=== PATIENT | female | born 2000 | race Caucasian/White ===

== ENCOUNTER 2018-12-05 06:28 | Inpatient (IN) | payer OTHER ==
[2018-12-05] MEDS ORDERED: ONDANSETRON 4 MG/2 ML VIAL IVP ONE (06:32)
[2018-12-05] MEDS ORDERED: NS 1,000 ML IV ONE (06:32)
[2018-12-05] MEDS ORDERED: IPRATROPIUM/ALBUTEROL 3 ML DEYVIAL IH ONE (06:32)
[2018-12-05] MEDS ORDERED: ONDANSETRON 4 MG/2 ML VIAL ONE (06:33)
[2018-12-05] MEDS ORDERED: IPRATROPIUM/ALBUTEROL 3 ML DEYVIAL ONE (06:33)
--- NOTE | 2018-12-05 06:36 | EDPHY ---
H & P Stated Complaint: SOB Time Seen by Provider: 12/05/18 06:32 HPI/ROS: HPI The patient presents with shortness of breath, wheezing, cough which she 1st noticed last night. She used her inhaler several times and eventually fell asleep. She awoke early this morning and had ongoing wheezing, cough, shortness of breath. She again used her inhaler though did not have any relief and 911 was called. Paramedics report initial sat was 80% on room air. She received a DuoNeb with improvement in her sats to the high 90s. The patient does have a history of asthma. She has been feeling sick with a cough and subjective fever for the last 2 days. She is not sure what triggered her asthma. She does not have any hospital admissions for asthma. REVIEW OF SYSTEMS 10 systems were reviewed and negative with the exception of the elements mentioned in the history of present illness. PMHx: Asthma as above Soc Hx: College student PHYSICAL General Appearance: Alert, no distress Eyes: Pupils equal and round no pallor or injection ENT, Mouth: Mucous membranes moist Respiratory: She is able to speak full sentences, there are expiratory wheezes throughout all lung [place] Cardiovascular: Tachycardic rate and regular rhythm Gastrointestinal: Abdomen is soft and non-tender, no masses, bowel sounds normal Neurological: A&O, moves all extremities Skin: Warm and dry, no rashes Musculoskeletal: Neck is supple non tender Extremities: symmetrical, full range of motion Psychiatric: Patient is oriented X 3, there is no agitation Source: Patient, EMS Exam Limitations: No limitations Constitutional: Initial Vital Signs Temperature (C) 36.8 C 12/05/18 06:31 Heart Rate 124 H 12/05/18 06:31 Respiratory Rate 24 H 12/05/18 06:31 Blood Pressure 129/88 H 12/05/18 06:31 O2 Sat (%) 91 L 12/05/18 06:31 O2 Delivery Mode Nasal Cannula O2 (L/minute) 2 Allergies/Adverse Reactions: No Known Allergies Allergy (Unverified 12/05/18 06:39) Home Medications: Medication Instructions Recorded Albuterol [Ventolin Hfa Inhaler] 1 - 2 puffs IH Q4H PRN 12/05/18 Herbals/Supplements -Info Only 1 ea PO DAILY 12/05/18 Medical Decision Making Differential Diagnosis: 18-year-old female with history of asthma presents with cough, wheeze, shortness of breath, not improved with her albuterol inhaler. Here, she is slightly tachypneic though in no respiratory distress, pulse ox is 90% on room air after receiving a DuoNeb in the ambulance. I suspect asthma exacerbation I would also consider URI or influenza. Plan for treatment with DuoNeb. Patient has already received Solu-Medrol. I will check chest x-ray, basic laboratory testing. Patient had normal chest x-ray and laboratory testing. Case is signed out to Dr. Carey. After initial DuoNeb she still has some wheezing present. Critical Care Time: CRITICAL CARE Critical care time spent by me, Dr. Ann, exclusively with this patient was 30 minutes, exclusive of PA time and exclusive of procedures. The organ system at risk was respiratory and I gave continuous nebulizer treatments to prevent worsening of the patients condition. - Data Points Laboratory Results: Laboratory Results 12/05/18 06:50 12/05/18 06:50 Medications Given: Acetaminophen (Tylenol) 650 mg PO Q4HRS PRN PRN Reason: Pain, Mild/Fever, Can Take PO Stop: 06/03/19 08:57 Last Admin: 12/06/18 10:07 Dose: 650 mg Benzonatate (Tessalon Pearles) 100 mg PO TID PRN PRN Reason: Cough, Mild Stop: 06/04/19 01:17 Last Admin: 12/06/18 02:37 Dose: 100 mg Guaifenesin (Mucinex) 600 mg PO BID [facility] Stop: 06/04/19 09:59 Last Admin: 12/06/18 21:22 Dose: 600 mg Guaifenesin/Dextromethorphan (Robitussin Dm Oral Liquid) 10 ml PO Q4HRS PRN PRN Reason: Cough, Moderate Stop: 06/04/19 01:17 Last Admin: 12/06/18 06:01 Dose: 10 ml Ipratropium [place] (Atrovent Neb) 0.5 mg IH QID BARBARA Stop: 06/03/19 15:59 Last Admin: 12/06/18 20:49 Dose: 0.5 mg Levalbuterol (Xopenex 1.25mg Neb) 1.25 mg IH QID BARBARA Stop: 06/03/19 15:59 Last Admin: 12/06/18 20:48 Dose: 1.25 mg Levalbuterol (Xopenex 1.25mg Neb) 1.25 mg IH Q2H PRN PRN Reason: Short of Breath/Dyspnea Stop: 06/03/19 13:28 Last Admin: 12/06/18 01:23 Dose: 1.25 mg Melatonin (Melatonin) 3 mg PO HS BARBARA Stop: 06/03/19 20:59 Last Admin: 12/06/18 21:22 Dose: 3 mg Methylprednisolone Sodium Succinate (Solu-Medrol) 125 mg IVP Q6H BARBARA Stop: 06/03/19 18:59 Last Admin: 12/06/18 18:03 Dose: 125 mg Phenol (Chloraseptic [place]) 1 spray PO Q2 PRN PRN Reason: Sore Throat Stop: 06/04/19 11:10 Last Admin: 12/06/18 11:37 Dose: 1 spray Fluticasone/Salmeterol (Advair) 1 puffs IH BID [facility] Stop: 06/03/19 11:14 Last Admin: 12/06/18 20:49 Dose: 1 puffs Discontinued Medications Albuterol (Proventil Neb) 10 ml IH CONT ONE Stop: 12/05/18 07:24 Last Admin: 12/05/18 07:31 Dose: 3 ml Albuterol (Proventil Neb) 3 ml IH QID BARBARA Stop: 06/03/19 11:59 Last Admin: 12/05/18 13:08 Dose: 3 ml Albuterol (Proventil Neb) 3 ml IH EDNOW ONE Stop: 12/05/18 10:12 Last Admin: 12/05/18 10:12 Dose: 3 ml Albuterol/Ipratropium (Duoneb) 3 ml IH EDNOW ONE Stop: 12/05/18 06:33 Last Admin: 12/05/18 06:39 Dose: 3 ml Sodium Chloride (Ns) 1,000 mls @ 0 mls/hr IV EDNOW ONE; Wide Open PRN Reason: Protocol Stop: 12/05/18 06:33 Last Admin: 12/05/18 06:39 Dose: 1,000 mls Magnesium Sulfate (Magnesium Sulf 2 Gm (Premix)) 50 mls @ 50 mls/hr IV EDNOW ONE Stop: 12/05/18 09:43 Last Admin: 12/05/18 08:59 Dose: 50 mls Azithromycin 500 mg/ Sodium (Chloride) 255 mls @ 255 mls/hr IV DAILY BARBARA PRN Reason: Protocol Stop: 01/04/19 13:59 Last Admin: 12/06/18 08:42 Dose: 255 mls Magnesium Sulfate (Magnesium Sulf 2 Gm (Premix)) 50 mls @ 50 mls/hr IV ONCE ONE Stop: 12/05/18 14:36 Last Admin: 12/05/18 23:34 Dose: Not Given Magnesium Sulfate (Magnesium Sulf 2 Gm (Premix)) 50 mls @ 50 mls/hr IV ONCE ONE Stop: 12/05/18 20:44 Last Admin: 12/05/18 20:08 Dose: 50 mls Lorazepam (Ativan) 1 mg PO Q4 PRN PRN Reason: Anxiety, Able to Take PO Stop: 06/03/19 19:05 Last Admin: 12/05/18 20:07 Dose: 1 mg Methylprednisolone Sodium Succinate (Solu-Medrol) 60 mg IVP Q6H [facility] Stop: 06/03/19 11:59 Last Admin: 12/05/18 13:09 Dose: 60 mg Methylprednisolone Sodium Succinate (Solu-Medrol) 60 mg IVP ONCE ONE Stop: 12/05/18 13:38 Last Admin: 12/05/18 13:53 Dose: 60 mg Ondansetron HCl (Zofran) 4 mg IVP EDNOW ONE Stop: 12/05/18 06:33 Last Admin: 12/05/18 06:39 Dose: 4 mg Departure - Departure Disposition: [facility] In[facility] Acute Clinical Impression: Exacerbation of asthma Qualifiers: Asthma severity: moderate Asthma persistence: unspecified Qualified Code(s): J45.901 - Unspecified asthma with (acute) exacerbation Condition: Fair
[2018-12-05 06:58] LABS: PLATELET COUNT 253 10^3/uL (150-400)
[2018-12-05] MEDS ORDERED: ALBUTEROL 3 ML DEYVIAL IH ONE ×2 (07:23→10:11)
[2018-12-05] MEDS ORDERED: MAGNESIUM SULF 2 GM/WATER 50 ML IV ONE ×3 (08:44→19:45)
--- NOTE | 2018-12-05 08:47 | EDPHY ---
ED Progress Note Narrative: 8:45 a.m. the patient has finished her hour long neb. She remains tight and wheezy to auscultation. She is desaturating without oxygen supplementation. She is otherwise pleasant and in no distress. Will admit for further treatment. Will add magnesium. Have paged hospital service.
[2018-12-05] MEDS ORDERED: ONDANSETRON 4 MG/2 ML VIAL IVP PRN (08:58)
[2018-12-05] MEDS ORDERED: ONDANSETRON DISINTEGRATING 4 MG TAB PO PRN (08:58)
[2018-12-05] MEDS ORDERED: ALBUTEROL 3 ML DEYVIAL IH PRN (08:58)
[2018-12-05] MEDS ORDERED: BECLOMETHASONE QVAR 40 REDIHALER 120 INH/10.6 GM MDI IH SCH (09:15)
--- NOTE | 2018-12-05 09:44 | PDGENHP ---
History and Physical - Chief Complaint SOB, wheezing - History of Present Illness 18 yo female with h/o asthma vs RAD presents to ED with wheezing and SOB. She notes a sore throat started 2 d prior to arrival. She then developed a wet cough and wheezing. Her SOB was worse last night and she used her Albuterol inhaler "an astronomical number of times". She normally uses Albuterol twice daily and reports several nights per week she wakes up with wheezing. She is not currently on an inhaled steroid. She denies fevers/chills. She feels burning and tightness in her chest, worse with breathing. She has no other medical problems. She received 125 mg IV solumedrol by EMS and in the ED received continuous albuterol and magnesium. She continues to wheeze, requiring 2.5 LPM O2 with sats in the low 90's. She is admitted for further management. History Information - Allergies/Home Medication List Allergies/Adverse Reactions: No Known Allergies Allergy (Unverified 12/05/18 06:39) Home Medications: Albuterol [Ventolin Hfa Inhaler] 1 - 2 puffs IH Q4H PRN 12/05/18 [Last Taken ] Herbals/Supplements -Info Only 1 ea PO DAILY 12/05/18 [Last Taken Unknown] I have personally reviewed and updated: family history, medical history, social history, surgical history - Past Medical History asthma - Surgical History Reports: no pertinent surgical hx - Family History Positive for: non-pertinent - Social History Smoking Status: Never smoked Alcohol Use: None Drug Use: Marijuana Additional social history: She lives in a college house with roommates. Does online school through [employer] and works at [employer]. Smokes MJ occasionally, tries to use edibles as she notes smoking increases her asthma symptoms. Review of Systems Review of Systems: ROS: 10pt was reviewed & negative except for what was stated in HPI & below Physical Exam Physical Exam: Temp Pulse Resp BP Pulse Ox 36.8 C 120 H 22 H 105/70 88 L 12/05/18 06:31 12/05/18 08:41 12/05/18 08:41 12/05/18 08:41 12/05/18 08:41 Constitutional: no apparent distress Eyes: PERRL Ears, Nose, Mouth, Throat: moist mucous membranes Cardiovascular: regular rate and rhythym, no murmur, rub, or gallop Respiratory: no respiratory distress, reduced air movement, expiratory wheeze Gastrointestinal: normoactive bowel sounds, soft, non-tender abdomen Skin: warm Musculoskeletal: full muscle strength Neurologic: AAOx3 Psychiatric: interacting appropriately Lab Data & Imaging Review 12/05/18 06:50 12/05/18 06:50 WBC 11.50 10^3/uL (3.80-9.50) H 12/05/18 06:50 RBC 4.50 10^6/uL (4.18-5.33) 12/05/18 06:50 Hgb 13.1 g/dL (12.6-16.3) 12/05/18 06:50 Hct 40.8 % (38.0-47.0) 12/05/18 06:50 MCV 90.7 fL (81.5-99.8) 12/05/18 06:50 MCH 29.1 pg (27.9-34.1) 12/05/18 06:50 MCHC 32.1 g/dL (32.4-36.7) L 12/05/18 06:50 RDW 14.3 % (11.5-15.2) 12/05/18 06:50 Plt Count 253 10^3/uL (150-400) 12/05/18 06:50 MPV 10.4 fL (8.7-11.7) 12/05/18 06:50 Neut % (Auto) 75.2 % (39.3-74.2) H 12/05/18 06:50 Lymph % (Auto) 12.9 % (15.0-45.0) L 12/05/18 06:50 [place] % (Auto) 7.0 % (4.5-13.0) 12/05/18 06:50 Eos % (Auto) 4.1 % (0.6-7.6) 12/05/18 06:50 Baso % (Auto) 0.5 % (0.3-1.7) 12/05/18 06:50 Nucleat RBC Rel Count 0.0 % (0.0-0.2) 12/05/18 06:50 Absolute Neuts (auto) 8.66 10^3/uL (1.70-6.50) H 12/05/18 06:50 Absolute Lymphs (auto) 1.48 10^3/uL (1.00-3.00) 12/05/18 06:50 Absolute Monos (auto) 0.80 10^3/uL (0.30-0.80) 12/05/18 06:50 Absolute Eos (auto) 0.47 10^3/uL (0.03-0.40) H 12/05/18 06:50 Absolute Basos (auto) 0.06 10^3/uL (0.02-0.10) 12/05/18 06:50 Absolute Nucleated RBC 0.00 10^3/uL (0-0.01) 12/05/18 06:50 Immature Gran % 0.3 % (0.0-1.1) 12/05/18 06:50 Immature Gran # 0.03 10^3/uL (0.00-0.10) 12/05/18 06:50 Sodium 140 mEq/L (135-145) 12/05/18 06:50 Potassium 3.8 mEq/L (3.5-5.2) 12/05/18 06:50 Chloride 111 mEq/L (97-110) H 12/05/18 06:50 Carbon Dioxide 20 mEq/l (22-31) L 12/05/18 06:50 Anion Gap 9 mEq/L (6-14) 12/05/18 06:50 BUN 6 mg/dL (7-23) L 12/05/18 06:50 Creatinine 0.6 mg/dL (0.6-1.0) 12/05/18 06:50 Estimated GFR > 60 12/05/18 06:50 Glucose 112 mg/dL (70-100) H 12/05/18 06:50 Calcium 8.4 mg/dL (8.5-10.4) L 12/05/18 06:50 Nasal Influenza A PCR NEGATIVE FOR FLU A (NEGATIVE) 12/05/18 06:40 Nasal Influenza B PCR NEGATIVE FOR FLU B (NEGATIVE) 12/05/18 06:40 RSV (PCR) NEGATIVE FOR RSV (NEGATIVE) 12/05/18 06:40 Visualized and Interpreted Chest x-ray results: Yes Chest X-Ray results: no infiltrate Assessment & Plan Assessment: AHRF 2/2 acute exacerbation of asthma - suspect viral URI was trigger. Flu and RSV neg. She has moderate persistent asthma by history, but uses only prn albuterol at home. Presented with SOB and wheezing. S/P IV solumedrol by EMS, continuous neb and Mag in ED, currently on 2.5 LPM O2. -admit to med/surg -solumedrol 60 mg IV q6h, start QVAR, will need this at dc -alb nebs QID plus q2h prn -wean O2 as able -supportive care, send RVP, ?viral URI Full code Dispo - inpt, anticipate >48 hrs hospitalization given hypoxemia and asthma exacerbation.
[2018-12-05] MEDS ORDERED: ALBUTEROL 3 ML DEYVIAL ONE (10:11)
[2018-12-05] MEDS: ALBUTEROL 3 ML DEYVIAL IH SCH ×2 (11:06→13:08)
[2018-12-05] MEDS: FLUTICASONE/SALMETER 250/50MCG DISKUS IH SCH ×2 (11:19→20:53)
[2018-12-05] MEDS ORDERED: methylPREDNISolone SOD SUCC 125 MG/2 ML VIAL IVP SCH (12:00)
--- NOTE | 2018-12-05 12:07 | PDMN ---
Medical Necessity Medical necessity: MCG M 60- asthma- A-1 day: 18yo F presents with SOB, wheezing , tachycardia, req 2L O2 to keep sats > 90-( 88% ) RA. anticipate > 2 MN ongoing med nec care, further monitoring and tx.
[2018-12-05] MEDS: ACETAMINOPHEN 325 MG TAB PO PRN (13:20)
[2018-12-05] MEDS ORDERED: methylPREDNISolone SOD SUCC 125 MG/2 ML VIAL IVP ONE (13:37)
[2018-12-05] MEDS: AZITHROMYCIN IV 500 MG in NS 250 ML IV SCH (13:53)
--- NOTE | 2018-12-05 14:31 | GCON ---
[f rep st] CONSULTATION PULMONARY CONSULTATION DATE OF CONSULTATION: 12/05/2018 HISTORY OF PRESENT ILLNESS: This patient is a 18-year-old female with a known history of asthma, usu ally controlled with albuterol alone, though she stated that she did not feel she had general control long-term. She is a college student and was in her usual state of health up until about 2 days ago when she developed fever, and then last evening developed shortness of breath, wheezing, and cough. She arrived in the emergency department about 0630 this morning, and oxygen saturations were 80% on r oom air. She was given oxygen, DuoNeb, and Solu-Medrol. She appeared to be relatively stable but co ntinued to have significant wheezing. Was subsequently given IV magnesium and transferred to the [facility] or. She was relatively stable at that point on 2 L/minute of oxygen but continued to have ongoing wh eezing problems. I was called to the room urgently by Respiratory Therapy because of worsening clini melba situation. When I arrived in the room, she was sitting on the edge of the bed in a tripod positi on with obvious accessory muscle usage and shortness of breath. She was quite pleasant at this time although she was complaining of ongoing wheezing and shortness of breath. She denied any hemoptysis. There have been no sick contacts that she has been aware of, there was no recent travel, and she de nied any recreational drug use, although we did not cover that in great detail. REVIEW OF SYSTEMS: Otherwise negative. PAST MEDICAL HISTORY: Asthma. PAST SURGICAL HISTORY: None. SOCIAL HISTORY: I believe she is a nonsmoker. No alcohol or IV drug use. FAMILY HISTORY: Noncontributory at this time. CURRENT MEDICATIONS: Include Tylenol, Xopenex, Solu-Medrol 60 mg IV q.6 hours, Zofran, and Advair. PHYSICAL EXAM: VITAL SIGNS: She was afebrile, but her respiratory rate was probably close to 25 or 30, heart rate of 114, oxygen saturation 90% on 5 L OxyMask. GENERAL: She was thin and in obvious m oderate respiratory distress but was able to smile and communicate appropriately using 1- or 2-word s entences. HEENT: Pupils equally round and reactive to light, nonicteric and noninjected. Mucous me mbranes were moist without erythema or exudate. NECK: Supple without adenopathy or jugular vein dis tention. LUNGS: Breath sounds had diffuse bilateral wheezing, both inspiratory and expiratory, with some coarse breath sounds. HEART: Regular rate and rhythm but was clearly tachycardic without obvi ous murmur. ABDOMEN: Soft, nontender, nondistended without hepatosplenomegaly. EXTREMITIES: No cl ubbing, cyanosis, or edema. NEUROLOGIC: Nonfocal, including cranial nerves and deep tendon reflexes . SKIN: Warm and dry without evidence of rash. OBJECTIVE DATA: Includes a chest x-ray that was normal save for possible hyperinflation. White coun t was 11.5, hematocrit 40.8, platelets of 253. Basic metabolic panel was normal save for a bicarb of about 20, glucose 112. Swabs for RSV, influenza A and B were negative, but human rhinovirus was, in fact, positive. ASSESSMENT AND PLAN: Severe acute asthma exacerbation, probably driven by a viral upper respiratory infection. She is relatively unstable and needs to be transferred to the at least step-down unit, no nintensive care unit, at least for the next 24 hours[address] I spoke to Dr. Washington in some detail, and we agreed to increase her steroids to 125 q.6 hours, give her some heliox as well as start azithromycin for multiple reasons, not that I believe she has pneumonia at this time. We also will give her DuoNe b to enhance bronchodilator activity. I do not believe she needs additional magnesium supplementatio n, which was already given in the emergency department. I would be opposed at the moment of any jon odiazepines or opiates and will closely watch her respiratory drive over the next several hours. A total of about 45 minutes of critical care time was required for this patient with a severe asthma exacerbation. /[id number]/MODL
--- NOTE | 2018-12-05 15:27 | ASMTCMCOM ---
CM Note CM Note Notes: Pt in with asthma exacerbation. No therapies ordered. Anticipate pt will d/c when medically stable, no CM d/c needs identified. CM available for changes/needs. Date Signed: 12/05/2018 03:27 PM Electronically Signed By:SHANNAN Chance
[2018-12-05] MEDS: LEVALBUTEROL 1.25 MG/3 ML DEYVIAL IH SCH ×2 (15:33→20:33)
[2018-12-05] MEDS: IPRATROPIUM BROMIDE 0.5 MG/2.5 ML DEYVIAL IH SCH ×2 (15:34→20:32)
[2018-12-05] MEDS: methylPREDNISolone SOD SUCC 125 MG/2 ML VIAL IVP SCH (18:33)
[2018-12-05] MEDS ORDERED: LORazepam 1 MG TAB PO PRN (19:06)
[2018-12-05] MEDS: MELATONIN 3 MG TAB PO SCH (23:33)
[2018-12-06] MEDS: methylPREDNISolone SOD SUCC 125 MG/2 ML VIAL IVP SCH ×4 (01:02→18:03)
[2018-12-06] MEDS: GUAIFENESIN/DM 10 ML UDCUP PO PRN ×2 (01:23→06:01)
[2018-12-06] MEDS: LEVALBUTEROL 1.25 MG/3 ML DEYVIAL IH PRN (01:23)
[2018-12-06] MEDS: ACETAMINOPHEN 325 MG TAB PO PRN ×3 (02:37→10:07)
[2018-12-06] MEDS: BENZONATATE 100 MG CAP PO PRN (02:37)
[2018-12-06] MEDS: LEVALBUTEROL 1.25 MG/3 ML DEYVIAL IH SCH ×4 (05:48→20:48)
[2018-12-06] MEDS: IPRATROPIUM BROMIDE 0.5 MG/2.5 ML DEYVIAL IH SCH ×4 (05:48→20:49)
[2018-12-06] MEDS: AZITHROMYCIN IV 500 MG in NS 250 ML IV SCH (08:42)
[2018-12-06] MEDS: FLUTICASONE/SALMETER 250/50MCG DISKUS IH SCH ×2 (08:43→20:49)
--- NOTE | 2018-12-06 09:49 | HOSPPROG ---
Hospitalist Progress Note Assessment/Plan: AHRF 2/2 asthma exacerbation in setting of viral URI - 2 LPM --> 5 LPM. RVP positive for rhino/enterovirus. Pt took a turn for the worse yesterday afternoon and was transferred to SCU, required bipap overnight, increased steroids and heliox. She is a bit improved today, still tenuous. -cont SDU monitoring -cont solumedrol 125 mg IV q6h -cont xopenex/ipratropium QID with prn xopenex nebs -cont advair and advised pt should continue this at dc given her nocturnal symptoms, will need new Rx -add scheduled guaifenesin plus prn anti-tussives -cont azithro for anti-inflammatory effect Viral URI - contributing to above -supportive care as above Full code Dispo - cont inpt, SDU Subjective: Pt feels a little better today, less tachypneic, decreased WOB. Was on bipap overnight, which was helpful. No fevers. No CP. Objective: Vital Signs Temp Pulse Resp BP Pulse Ox 36.7 C 86 26 H 119/74 93 12/06/18 06:06 12/06/18 06:25 12/06/18 06:25 12/06/18 06:06 12/06/18 06:25 Microbiology 12/06/18 02:40 - Final Sputum, Expectorated Laboratory Results 12/06/18 08:35 12/05/18 12/06/18 12/07/18 05:59 05:59 05:59 Intake Total 2744 Balance 2744 - Physical Exam Constitutional: no apparent distress Eyes: PERRL Ears, Nose, Mouth, Throat: moist mucous membranes Cardiovascular: regular rate and rhythym Respiratory: no respiratory distress, reduced air movement, expiratory wheeze Gastrointestinal: normoactive bowel sounds, soft, non-tender abdomen Skin: warm Musculoskeletal: full muscle strength Neurologic: AAOx3 Psychiatric: interacting appropriately ICD10 Worksheet Patient Problems: Problems Problem Status Onset Exacerbation of asthma Acute
[2018-12-06] MEDS: guaiFENesin 600 MG TAB.ER PO SCH ×2 (10:06→21:22)
[2018-12-06] MEDS ORDERED: PHENOL 177 ML THROAT SPRAY PO PRN (11:11)
--- NOTE | 2018-12-06 14:53 | PDINTPN ---
[employer] Progress Note Assessment/Plan: 18 F with history of asthma x about 4-5 years, normally controlled on prn albuterol (though requires this nearly daily) c/o increasing SOB and wheezing for several days followed by acute worsening the night prior to admission. The next day she came to the ED and was hypoxic with significant WOB and wheezing with a normal CXR. She was treated with continuous nebs, advair magnesium, solumedrol and admitted to the floor. However, she progresed despite these measures so was transferred to ICU where her solumedrol was increased, azithromycin was added in addition to atrovent and placed on Bipap. Nasal swab revealed rhinovirus while bacterial cultures were negative. * Acute asthma exacerbation likely triggered by rhinovirus. She still has substantial wheezing so her regimen was not changed today. She should remain under SDU status today and use bipap prn. If she remains stable, she can go to the floor tomorrow. * Hypoxia- 2/2 above. Titrating to sat >90%; should resolve but I mentioned the possibility of home O2 if necessary. Subjective: much improved today but used bipap all night. Remains on O2 Objective: Vital Signs Temp Pulse Resp BP Pulse Ox 36.9 C 93 24 H 104/61 92 12/06/18 11:24 12/06/18 11:45 12/06/18 11:45 12/06/18 11:24 12/06/18 11:45 Microbiology 12/06/18 02:40 - Final Sputum, Expectorated Laboratory Results 12/06/18 08:35 12/05/18 12/06/18 12/07/18 05:59 05:59 05:59 Intake Total 2744 250 Balance 2744 250 Physical Exam - Physical Exam General Appearance: WD/WN, alert, mild distress, thin EENT: PERRL/EOMI, No scleral icterus (R), No scleral icterus (L) Neck: full range of motion, supple Respiratory: accessory muscle use, wheezing, prolonged expiration, retractions ( improved), No respiratory distress, No crackles, No rales, No stridor Cardiac/Chest: regular rate, rhythm, No edema, No JVD Abdomen: non-tender, soft, No distended Skin: normal color, warm/dry, No cyanosis Lymphatic: no adenopathy Extremities: No pedal edema Neuro/Psych: alert, normal mood/affect, oriented x 3 ICD10 Worksheet Patient Problems: Problems Problem Status Onset Exacerbation of asthma Acute
[2018-12-06] MEDS: MELATONIN 3 MG TAB PO SCH (21:22)
[2018-12-07] MEDS: methylPREDNISolone SOD SUCC 125 MG/2 ML VIAL IVP SCH ×4 (01:36→19:50)
[2018-12-07] MEDS: LEVALBUTEROL 1.25 MG/3 ML DEYVIAL IH PRN (01:51)
[2018-12-07] MEDS: LEVALBUTEROL 1.25 MG/3 ML DEYVIAL IH SCH ×4 (05:43→21:32)
[2018-12-07] MEDS: IPRATROPIUM BROMIDE 0.5 MG/2.5 ML DEYVIAL IH SCH ×4 (05:43→21:32)
[2018-12-07] MEDS: guaiFENesin 600 MG TAB.ER PO SCH ×2 (09:11→19:57)
[2018-12-07] MEDS: AZITHROMYCIN 250 MG TAB PO SCH (09:11)
[2018-12-07] MEDS: FLUTICASONE/SALMETER 250/50MCG DISKUS IH SCH ×2 (11:05→21:33)
[2018-12-07] MEDS ORDERED: CANN-EASE 2 GM TUBE TP PRN (11:20)
--- NOTE | 2018-12-07 11:22 | HOSPPROG ---
Hospitalist Progress Note Assessment/Plan: AHRF 2/2 asthma exacerbation in setting of viral URI - 2 LPM --> 5 LPM. RVP positive for rhino/enterovirus. Pt took a turn for the worse shortly after admission and was transferred to SDU, required bipap overnight, increased steroids and heliox. She is a bit improved today. At baseline, she has nocturnal wheezing most nights and does not use a maintenance inhaler. -ok to transfer to med/surg -cont solumedrol 125 mg IV, will decrease slightly to q8h -cont xopenex/ipratropium QID with prn xopenex nebs -cont advair and advised pt should continue this at dc given her nocturnal symptoms, will need new Rx -cont scheduled guaifenesin plus prn anti-tussives -cont azithro for anti-inflammatory effect, day 3 Viral URI - contributing to above -supportive care as above Full code Dispo - cont inpt, transfer to med/surg Subjective: Pt feels better today, less WOB. Slept well. No fevers. Coughing still. No CP. Eating well. Dad here now. Objective: Vital Signs Temp Pulse Resp BP Pulse Ox 36.5 C 71 20 96/48 L 94 12/06/18 20:00 12/07/18 07:42 12/07/18 07:42 12/07/18 07:42 12/07/18 07:42 Microbiology 12/06/18 02:40 - Final Sputum, Expectorated Laboratory Results 12/06/18 08:35 12/06/18 12/07/18 12/08/18 05:59 05:59 05:59 Intake Total 2744 650 Balance 2744 650 - Physical Exam Constitutional: no apparent distress Eyes: PERRL Ears, Nose, Mouth, Throat: moist mucous membranes Cardiovascular: regular rate and rhythym Respiratory: no respiratory distress, reduced air movement, expiratory wheeze, other (improved air exchange today though still wheezing) Gastrointestinal: normoactive bowel sounds, soft, non-tender abdomen Skin: warm Musculoskeletal: full muscle strength Neurologic: AAOx3 Psychiatric: interacting appropriately ICD10 Worksheet Patient Problems: Problems Problem Status Onset Exacerbation of asthma Acute
[2018-12-07] MEDS: MELATONIN 3 MG TAB PO SCH (19:57)
[2018-12-08] MEDS: methylPREDNISolone SOD SUCC 125 MG/2 ML VIAL IVP SCH ×2 (04:53→12:11)
[2018-12-08] MEDS: IPRATROPIUM BROMIDE 0.5 MG/2.5 ML DEYVIAL IH SCH ×4 (06:06→21:00)
[2018-12-08] MEDS: LEVALBUTEROL 1.25 MG/3 ML DEYVIAL IH SCH ×4 (06:06→21:00)
--- NOTE | 2018-12-08 08:32 | HOSPPROG ---
Hospitalist Progress Note Assessment/Plan: DIAGNOSES: * Acute hypoxemic respiratory failure * Acute asthma exacerbation * Viral upper respiratory infection is likely the trigger of the above The patient has very poor knowledge base coming in to this admission regarding triggers and mechanisms of asthma, as well as acute and chronic management issues. We had long discussions today regarding avoidance behaviors for triggers, use of appropriate steroid for maintenance as well as other medications, and use of pre exercise albuterol as she does have an exercise component to her asthma. Is recommended to her that she avoid all persons with cold or flu symptoms and get a flu shot every year. Careful hand washing his emphasized PLANS: * Continue steroids and bronchodilators * Ongoing inhaled steroid which will need to continue * Will add Singulair at discharge * At this time due to ongoing hypoxemia and exertional dyspnea will continue inpatient care, consider possible discharge 1-2 days depending on improvement, will likely need oxygen at discharge * Will review with pulmonology Seen by me today on hospitals rounds as well as multidisciplinary rounds SUBJECTIVE: Still short of breath with ambulation, remains hypoxic, using oxygen No chest pain Still with cough OBJECTIVE Vitals reviewed: Stable without fever Oxygen: Still requiring 4 L oxygen for hypoxemia at rest Exam: alert oriented skin warm dry color ok resps not labored at rest but labored with exercise lungs diminished but clear BSs heart regular abd soft nondistended nontender, bowel sounds present limbs warm, no edema iv site ok Objective: Vital Signs Temp Pulse Resp BP Pulse Ox 36.8 C 60 18 99/61 L 95 12/08/18 07:30 12/08/18 07:30 12/08/18 07:30 12/08/18 07:30 12/08/18 07:30 Microbiology 12/06/18 02:40 - Final Sputum, Expectorated Laboratory Results 12/06/18 08:35 12/07/18 12/08/18 12/09/18 06:59 06:59 06:59 Intake Total 650 800 Balance 650 800 - Time Spent With Patient Time Spent with Patient: greater than 35 minutes Time Spent with Patient: Greater than 35 minutes spent on this patients care, greater than 50% of time spent counseling, educating, and coordinating care regarding the above mentioned plan. ICD10 Worksheet Patient Problems: Problems Problem Status Onset Exacerbation of asthma Acute
[2018-12-08] MEDS: guaiFENesin 600 MG TAB.ER PO SCH ×2 (09:06→21:47)
[2018-12-08] MEDS: AZITHROMYCIN 250 MG TAB PO SCH (09:06)
--- NOTE | 2018-12-08 09:14 | PDDCSUM ---
Discharge Summary Discharge Summary: DISCHARGE DIAGNOSES: * Acute hypoxemic respiratory failure * Acute asthma exacerbation * Chronic asthma, with numerous triggers including allergies, dust, exercise CONSULTANTS: Dr. Nikita Adams [facility] COURSE SUMMARY: This patient with known asthma has been so far minimizing treatment for her asthma as she does not like to take medications. She comes in now with an acute asthma exacerbation triggered by viral upper respiratory infection. She had fairly severe asthma requiring inpatient care with steroids and bronchodilators. She had somewhat slow but good response to these medicines and is now able to get up and walk in the hallway on room air. She is still wheezing but moving air much better than at admission. The patient has very poor knowledge base coming in to this admission regarding triggers and mechanisms of asthma, as well as acute and chronic management issues. We had long discussions here regarding avoidance behaviors for triggers , use of appropriate steroid for maintenance as well as other medications, and use of pre exercise albuterol as she does have an exercise component to her asthma. Is recommended to her that she avoid all persons with cold or flu symptoms and get a flu shot every year. Careful hand washing his emphasized PENDING TEST RESULTS: None MEDICATION CHANGES: Addition of prednisone Addition of fluticasone/salmeterol FOLLOW-UP PLAN: She is referred to Greater than 35 minutes bedside and care coordination time today
[2018-12-08] MEDS: FLUTICASONE/SALMETER 250/50MCG DISKUS IH SCH ×2 (09:27→21:00)
--- NOTE | 2018-12-08 12:44 | ASMTCMCOM ---
CM Note CM Note Notes: Patient plan of cre reviewed in am rounds. 18 year old female with exacerbation of asthma . Improving, No needs identified CM available should needs arise. Plan: Dc to home independent when medically cleared. Date Signed: 12/08/2018 12:44 PM Electronically Signed By:Manasa Cohn RN
--- NOTE | 2018-12-08 15:09 | PDINTPN ---
Freight Dispatcher Progress Note Assessment/Plan: Assessment: Severe asthma exacerbation: Occurs in the setting of chronically poorly controlled asthma, with daily beta agonist use and symptoms which limited activity tolerance. The exacerbation was likely triggered by rhino virus. She is symptomatically improved with high-dose steroids and bronchodilators, but still requiring 4 L of supplemental oxygen in order to maintain oxygen saturations in the 90s. I had a fairly long discussion with the patient regarding the transition to outpatient medications as well as the benefits and side effects of controller medications as well as the risks of poorly controlled asthma, which include life -threatening the exacerbations such as this one as well as chronic progressive loss of lung function. Plan: Change steroids to p.o. Continue bronchodilators and Advair. Hopefully can discharge as soon as tomorrow morning, we will likely need supplemental oxygen. Can follow up as an outpatient with Dr. Adams or myself at the end of this week or next week. 12/08/18 15:09 Subjective: Still some chest tightness and cough, but improved. Objective: Vital Signs Temp Pulse Resp BP Pulse Ox 36.3 C 68 18 109/67 94 12/08/18 11:19 12/08/18 11:19 12/08/18 11:19 12/08/18 11:19 12/08/18 11:19 Microbiology 12/06/18 02:40 - Final Sputum, Expectorated Laboratory Results 12/06/18 08:35 12/07/18 12/08/18 12/09/18 05:59 05:59 05:59 Intake Total 650 800 Balance 650 800 Physical Exam - Physical Exam General Appearance: alert, no apparent distress EENT: normal ENT inspection Neck: normal inspection Respiratory: wheezing Cardiac/Chest: normal peripheral pulses, regular rate, rhythm, No edema Abdomen: normal bowel sounds, non-tender Skin: normal color, warm/dry Extremities: normal inspection Neuro/Psych: alert, normal mood/affect, No motor weakness ICD10 Worksheet Patient Problems: Problems Problem Status Onset Exacerbation of asthma Acute
[2018-12-08] MEDS: predniSONE 20 MG TAB PO SCH (17:38)
[2018-12-08] MEDS: MELATONIN 3 MG TAB PO SCH (21:47)
[2018-12-08] MEDS: BENZONATATE 100 MG CAP PO PRN (21:47)
[2018-12-09] MEDS: GUAIFENESIN/DM 10 ML UDCUP PO PRN (02:02)
[2018-12-09] MEDS: IPRATROPIUM BROMIDE 0.5 MG/2.5 ML DEYVIAL IH SCH ×3 (05:15→16:27)
[2018-12-09] MEDS: LEVALBUTEROL 1.25 MG/3 ML DEYVIAL IH SCH ×3 (05:16→16:27)
[2018-12-09] MEDS: predniSONE 20 MG TAB PO SCH ×2 (08:25→18:19)
[2018-12-09] MEDS: guaiFENesin 600 MG TAB.ER PO SCH (08:26)
[2018-12-09] MEDS: AZITHROMYCIN 250 MG TAB PO SCH (08:26)
[2018-12-09] MEDS: FLUTICASONE/SALMETER 250/50MCG DISKUS IH SCH (10:39)
[2018-12-09 15:19] VITALS: BP 92/63
--- NOTE | 2018-12-09 15:36 | PDHOMEO2F ---
Home Oxygen Face to Face Home Orders: I certify that a physician or a nurse practitioner or physician's contact center assistant has had a [id number] encounter with this patient on the date of this order due to the diagnosis listed, which relates to the primary reason the patient requires home oxygen. Alternative treatments have been tried, or considered, and deemed ineffective. It is anticipated that supplemental oxygen will result in improvement with treatment. Home oxygen qualifying diagnosis: asthma Home oxygen secondary diagnosis: hypoxemic respiratory failure SpO2 on room air (%): 85 Frequency of home oxygen needed: continuous Home oxygen liters per minute: 4 Home oxygen delivery device: mask, nasal cannula Concentrator: Yes E-tanks for mobility and back up: Yes If ordering portable O2, is the patient mobile in the home?: Yes I certify that, based on these findings, the home oxygen is medically necessary for this patient for the following length of time. Length of time home oxygen needed: 1 week Home Oxygen Comment: Pt will be reassessed in pulmonology clinic, and final determination of duration of Oxygen need made there
--- NOTE | 2018-12-09 15:41 | PDDCSUM ---
Discharge Summary Discharge Summary: DISCHARGE DIAGNOSES: * acute hypoxemic respiratory failure * acute asthma exacerbation * viral upper respiratory infection CONSULTANTS: Doctors Nikita Adams and Nam Andrews HOSPITAL COURSE SUMMARY: This patient with known asthma using intermittent albuterol but no inhaled steroids and with less than ideal chronic control of asthma comes in with acute upper respiratory infection, acute shortness of breath with severe hypoxemia and acute exacerbation of asthma with wheezing prolonged expiration and obvious respiratory distress. She is admitted the hospital and treated with high-dose steroids as well as nebulized bronchodilators. She is found have acute rhino virus infection. Her responses been somewhat slow but she has responded to the medications to the point of being back to her baseline chronic dyspnea and wheezing. She is ambulating in the hallway with these and eating well. She is no longer in any respiratory distress. She is moving air much better on exam. Notably she has ongoing hypoxemia. There is nothing about her case to suggest pulmonary embolism, she does not have any lung infiltrates or heart failure, it is felt that she likely has some airway plugging or collapse that may be causing the hypoxemia and is expected to resolve. At this time she is stable for discharge to home PENDING TEST RESULTS: None MEDICATION CHANGES: Addition of prednisone 60 mg twice daily In addition of Advair inhaler She is also prescribed home oxygen at 4 L nasal cannula FOLLOW-UP PLAN: With Dr. Aadms or Darryl in pulmonology clinic early next week Greater than 35 minutes bedside and care coordination time today
--- NOTE | 2018-12-09 15:44 | PDINTPN ---
Lean Manufacturing Engineer Progress Note Assessment/Plan: Assessment: Severe asthma exacerbation: Occurs in the setting of chronically poorly controlled asthma, with daily beta agonist use and symptoms which limited activity tolerance. The exacerbation was likely triggered by rhino virus. She is symptomatically improved with high-dose steroids and bronchodilators, but still requiring 4 L of supplemental oxygen in order to maintain oxygen saturations in the 90s. I had a fairly long discussion with the patient regarding the transition to outpatient medications as well as the benefits and side effects of controller medications as well as the risks of poorly controlled asthma, which include life -threatening the exacerbations such as this one as well as chronic progressive loss of lung function. Plan: Continue p.o. Steroids, could discharge on 40 mg prednisone twice daily. Continue bronchodilators and Advair. Could discharge today on oxygen and Advair. Can follow up as an outpatient with Dr. dAams or myself at the end of this week or next week. Discussed discharge planning with patient and Dr. Hernández. She will go stay with heard father at a hotel for a few days. 12/08/18 15:09 12/09/18 15:43 12/09/18 15:43 Subjective: Feels better, able to take deep breaths and move air with less limitation. Feels that she is getting close to baseline. Objective: Vital Signs Temp Pulse Resp BP Pulse Ox 36.8 C 64 16 92/63 L 95 12/09/18 15:18 12/09/18 15:18 12/09/18 15:18 12/09/18 15:18 12/09/18 15:18 Microbiology 12/06/18 02:40 - Final Sputum, Expectorated Sputum Culture - Final Laboratory Results 12/06/18 08:35 12/08/18 12/09/18 12/10/18 05:59 05:59 05:59 Intake Total 800 650 Balance 800 650 Physical Exam - Physical Exam General Appearance: alert, no apparent distress EENT: normal ENT inspection Neck: normal inspection Respiratory: wheezing (Bilateral upper lung mondragon, improved from yesterday) Cardiac/Chest: regular rate, rhythm, No edema Abdomen: normal bowel sounds, non-tender Skin: normal color, warm/dry Extremities: non-tender Neuro/Psych: alert, normal mood/affect, oriented x 3 ICD10 Worksheet Patient Problems: Problems Problem Status Onset Exacerbation of asthma Acute
--- NOTE | 2018-12-09 16:40 | ASMTLACE ---
NERI Length of stay for Answers: 4-6 days current admission Acuity / Level of Answers: Yes Care: Did the patient have an inpatient admission? Comorbidities - select Answers: Other Notes: Asthma all that apply # of Emergency department Answers: 0 visits in the last 6 months Score: 8 Date Signed: 12/09/2018 04:40 PM Electronically Signed By:Irena Delgadillo
--- NOTE | 2018-12-09 16:46 | ASDISCHSUM ---
Discharge Information Plan Status:Home with DME or Oxygen Medically Cleared to Leave: Discharge Date: CM D/C Disposition: ADT D/C Disposition:Home, Routine, Self-Care Projected Discharge Date: Transportation at D/C: Discharge Delay Reason: Follow-Up Date: Discharge Slot: Final Diagnosis: Placement Information Patient Contact Information Contact Name:AI Relationship:Mother Address:[address] [address] Work Phone: City:[place] Phone: State/Zip Code:[place] [address] Email: Financial Information Financial Class:HMO and PPO Plans Primary Plan Desc:[employer] Primary Plan Number:[id number] Secondary Plan Desc: Secondary Plan Number: Assessment Information LACE LACE Length of stay for Answers: 4-6 days current admission Acuity / Level of Answers: Yes Care: Did the patient have an inpatient admission? Comorbidities - select Answers: Other Notes: Asthma all that apply # of Emergency department Answers: 0 visits in the last 6 months Score: 8 Date Signed: 12/09/2018 04:40 PM Electronically Signed By:Irena Delgadillo [facility] CM Progress Note CM Note CM Note Notes: Pt in with asthma exacerbation. No therapies ordered. Anticipate pt will d/c when medically stable, no CM d/c needs identified. CM available for changes/needs. Date Signed: 12/05/2018 03:27 PM Electronically Signed By:SHANNAN Chance [facility] CM Progress Note CM Note CM Note Notes: Patient plan of cre reviewed in am rounds. 18 year old female with exacerbation of asthma . Improving, No needs identified CM available should needs arise. Plan: Dc to home independent when medically cleared. Date Signed: 12/08/2018 12:44 PM Electronically Signed By:Manasa Cohn RN Intervention Information
--- NOTE | 2018-12-09 16:52 | ASMTCMCOM ---
CM Note CM Note Notes: Pt will discharge home with Father on 4L of oxygen. No other needs at this time. Plan: Home with Father. Date Signed: 12/09/2018 04:51 PM Electronically Signed By:Irena Delgadillo
== END 2018-12-09 19:04 | disposition home or self-care (01) | DRG 189 ==
LOC: OBSVTOIN 08:57 → F1N 10:33 → F2N 14:33 → F1N 12-07 12:40
PROVIDERS: ADMIT Hospitalist; ATTEND Hospitalist
DX: J96.01 Acute respiratory failure with hypoxia (principal); J45.901 Unspecified asthma with (acute) exacerbation; J06.9 Acute upper respiratory infection, unspecified; B97.89 Other viral agents as the cause of diseases classified elsewhere
CPT/HCPCS: 96365; J0456; J2405; J2930; J3475; J7512; J7613